=== PATIENT | female | born 1995 | race Caucasian/White ===

== ENCOUNTER 2017-02-01 12:11 | Day surgery (SDC) | payer BC ==
[~2017-02-01] VITALS: Ht 154.9 cm; Wt 53.5 kg
[~2017-02-01 12:11] MED LIST: ALB.5NB20 IH; NORG1TAB55 PO
[2017-02-01] MEDS ORDERED: CLARITIN PO (13:43)
[2017-02-01] MEDS ORDERED: OXYM30SP21 NASAL (13:43)
[2017-02-01] MEDS ORDERED: MUCINEX PO (13:43)
[2017-02-01] MEDS ORDERED: ALLERGY SHOTS (13:43)
[2017-02-01 13:52] VITALS: Ht 154.9 cm; Wt 53.5 kg
[2017-02-01] MEDS ORDERED: FENTAnyl 50 MCG/ML VIAL ONE (16:15)
[2017-02-01] MEDS ORDERED: MIDAZOLAM 1 MG/ML 2 ML INJ ONE (16:15)
[2017-02-01] MEDS ORDERED: PROPOFOL 20 ML ONE (16:15)
--- NOTE | 2017-02-01 16:31 | OPPN ---
Date/Time of Note Date/Time of Note DATE: 02/01/17 TIME: 16:27 Proc Note GI Procedure date: Feb 01, 2017 Pre-procedure Diagnosis * Reflux symptoms Post-procedure Diagnosis Assessment: * Erosive esophagitis. Rule out Roper's esophagus. Biopsies obtained * Moderate gastritis. Rule out H. pylori infection. Biopsies obtained Plan: * Omeprazole 40 mg daily * Review pathology as soon as available * Follow-up as previously scheduled Operation Performed * EGD with biopsies Surgeon: JOSÉ RODRIGUEZ MD Anesthesia Type: MAC Anesthesiologist: CHIARA ARCE MD Estimated blood loss: none Transfusion Required: no Specimens * Gastric body and antrum. Rule out H. pylori infection * Distal esophagitis. Rule out Roper's esophagus Grafts/Implants: none Complications: no Pt Condition post procedure: stable Disposition: PACU Procedure Description After informed consent, with the patient/relatives understanding the procedure, its indications, potential risks and complications, including but not limited to : allergic reaction, bleeding, perforation or infection, and after all pertinent questions were answered to the patients satisfaction, the patient/ relatives signed witnessed informed consent. Following this, premedication was administered slowly IV push under careful cardiovascular and respiratory monitoring with pulse oximetry, automatic blood pressure, and court monitor. Once the sedative effect was achieved the patient was place in the left lateral decubitus, the panendoscope was introduced and advanced under visual control. Careful examination of the upper gastrointestinal tract, both on insertion as well as withdrawal of the instrument disclosing the following findings: ESOPHAGUS: the mucosa of the entire esophagus was carefully examined and showed the following findings: There is significant erythema, edema and superficial erosion of the mucosa at the EG junction localized approximately 37 cm. Biopsies were obtained to rule out Roper's esophagus. Otherwise the mucosa appears within normal limits. There is no evidence of varices, neoplasm, or stricture. No Hiatal Hernia identified. STOMACH: Upon entrance to the stomach air was insufflated, the gastric mahoney distended normally. The mucosa of the fundus, body and antrum of the stomach was carefully examined both head-on and on retroflexion, and showed the following findings: There is moderate erythema and edema of the mucosa of the body and antrum. Biopsies were obtained to rule out H. pylori infection. Otherwise the mucosa appears within normal limits with no abnormalities. There is no evidence of ulcers or neoplasm. PYLORUS: The pylorus was carefully examined and showed the following findings: the pylorus appears patent and within normal limits, with no evidence of gastric outlet obstruction. DUODENUM: The duodenal mucosa was carefully examined in the duodenal bulb as well as the second portion of the duodenum and showed the following findings: the mucosa appears unremarkable with no evidence of duodenitis, ulcer or neoplasm. JOSÉ RODRIGUEZ MD Feb 01, 2017 16:31
[2017-02-01 17:10] VITALS: BP 107/60; RESP 14
== END 2017-02-01 17:05 | disposition home or self-care (01) ==
LOC: GIL 12:11
PROVIDERS: ATTEND Internal Medicine Gastroenterology
DX: K21.9 Gastro-esophageal reflux disease without esophagitis (principal); K29.50 Unspecified chronic gastritis without bleeding; K21.0 Gastro-esophageal reflux disease with esophagitis; K20.8 Other esophagitis; J45.909 Unspecified asthma, uncomplicated
CPT/HCPCS: 43239; 84702; 88305; 88312; 88313; J2250; J3010; Z7610